=== PATIENT | male | born 1960 | race Caucasian/White ===

== ENCOUNTER 2018-02-15 07:51 | Emergency (ER) | payer OTHER ==
[~2018-02-15] VITALS: Ht 177.8 cm; Wt 90.0 kg
[2018-02-15] MEDS ORDERED: LEVOTHYROXIN125 MCG PO (08:17)
[2018-02-15] MEDS ORDERED: LEVOTHYROXIN100 MCG PO (08:18)
[2018-02-15] MEDS ORDERED: OMEGA-3 FISH1000 MG PO (08:19)
[2018-02-15] MEDS ORDERED: RANITIDINE150 MG PO (08:19)
[2018-02-15] MEDS ORDERED: SIMVASTATIN40 MG PO (08:20)
[2018-02-15] MEDS ORDERED: BENZTROPINE0.5 MG PO ×2 (08:31→08:32)
[2018-02-15] MEDS ORDERED: LAMICTAL150 MG PO (08:33)
[2018-02-15] MEDS ORDERED: TAMSULOSIN HCL0.4 MG PO (08:35)
[2018-02-15] MEDS ORDERED: PROLIXIN 5 MG TA5 MG PO (08:36)
[2018-02-15] MEDS ORDERED: GABAPENTIN PO (08:38)
[2018-02-15] MEDS ORDERED: CEPHALEXIN500 M1 PO (10:10)
[2018-02-15 10:19] VITALS: BP 120/68
== END 2018-02-15 10:23 | disposition designated cancer center or children's hospital (05) | DRG 605 ==
LOC: ED 07:51
PROC: 0HQ0XZZ Repair Scalp Skin, External Approach (ICD-10-PCS; principal; 2018-02-15)
DX: S01.01XA Laceration without foreign body of scalp, initial encounter (principal); W19.XXXA Unspecified fall, initial encounter; Y92.149 Unspecified place in prison as the place of occurrence of the external cause

== ENCOUNTER → 2018-04-14 | Outpatient (REF) | payer OTHER ==
[~2018-04-14] MED LIST: BENZTROPINE0.5 MG PO; CEPHALEXIN500 M1 PO; GABAPENTIN PO; LAMICTAL150 MG PO; LEVOTHYROXIN100 MCG PO; LEVOTHYROXIN125 MCG PO; OMEGA-3 FISH1000 MG PO; PROLIXIN 5 MG TA5 MG PO; RANITIDINE150 MG PO; SIMVASTATIN40 MG PO; TAMSULOSIN HCL0.4 MG PO
== END | disposition home or self-care (01) | DRG 552 ==
LOC: MRI 04-04 07:30
PROVIDERS: ATTEND Internal Medicine
DX: M51.35 Other intervertebral disc degeneration, thoracolumbar region (principal); M51.36 Other intervertebral disc degeneration, lumbar region; M51.37 Other intervertebral disc degeneration, lumbosacral region; M48.061 Spinal stenosis, lumbar region without neurogenic claudication

== ENCOUNTER 2023-02-22 18:18 | Emergency (ER) | payer OTHER ==
[~2023-02-22] VITALS: Ht 177.8 cm; Wt 96.0 kg
[2023-02-22] MEDS ORDERED: LISINOPRIL40 MG PO (19:11)
[2023-02-22] MEDS ORDERED: LASIX 40 MG TAB40 MG PO (19:11)
[2023-02-22] MEDS ORDERED: MAXZIDE-25MG1 COMBO PO (19:13)
[2023-02-22] MEDS ORDERED: CLONIDINE0.2 MG PO (19:14)
[2023-02-22] MEDS ORDERED: ATORVASTATIN CA40 MG PO (19:14)
[2023-02-22 19:17] LABS: ALBUMIN 4.3 g/dL (3.2-5.0); ALKALINE PHOSPHATASE 76 u/l (38-126); ANION GAP 14 (6-22 (CALC)); BILIRUBIN, TOTAL 0.3 mg/dL (0.2-1.3); BUN 11 mg/dL (8-23); BUN/CREATININE RATIO 11 (12-20 (CALC)); CARBON DIOXIDE 28 mmol/l (22-30); CHLORIDE 104 mmol/l (95-108); GFR FOR AFR.AMER. > 60 ML/MIN (>=60 (CALC)); GFR OTHER RACES > 60 ML/MIN (>=60 (CALC)); POTASSIUM 4.1 mmol/l (3.5-5.1); SGOT/AST 35 u/l (19-48); SODIUM 142 mmol/l (137-146); TOTAL PROTEIN 7.5 g/dL (6.3-8.2)
[2023-02-22] MEDS ORDERED: ABILIFY5 MG PO (19:18)
[2023-02-22 19:19] LABS: BASO% 0.4 % (0-3); EOS% 8.7 % (0-8); HEMATOCRIT 38.4 % (39.0-50.0); HEMOGLOBIN 12.3 g/dl (14.0-18.0); IMMATURE GRANULOCYTES 0.1 % (0.0-5.0); LYMPH% 24.6 % (15-41); MEAN CELL VOLUME 90.8 fL CALC (80.0-100.0); MEAN CORPUSCULAR HGB 29.1 pG CALC (26.0-32.0); MONO% 10.3 % (2-13); NEUT% 55.9 % (42-76); RED BLOOD COUNT 4.23 mill/uL (4.70-6.10); RED CELL DISTRI WIDTH 14.7 % (11.5-15.5)
[2023-02-22] MEDS ORDERED: BUPROPION HCL150 MG PO (19:19)
[2023-02-22 19:29] LABS: PROTHROMBIN TIME 10.3 SECONDS (9.0-12.5)
[2023-02-22 19:30] LABS: D-DIMER 2.08 mg/L (0.19-0.60)
[2023-02-22 20:19] VITALS: BP 136/88
[2023-02-22 20:30] VITALS: BP 165/90
[2023-02-22 20:45] VITALS: BP 164/95
[2023-02-22 21:00] VITALS: BP 172/92
[2023-02-22 21:15] VITALS: BP 166/83
[2023-02-22] MEDS ORDERED: KEFLEX500 MG PO (22:42)
[2023-02-22 22:57] VITALS: BP 166/83
== END 2023-02-22 22:51 | disposition designated cancer center or children's hospital (05) | DRG 603 ==
LOC: ED 18:18
PROVIDERS: Nurse Practitioner
DX: L03.115 Cellulitis of right lower limb (principal); S81.811A Laceration without foreign body, right lower leg, initial encounter; I10 Essential (primary) hypertension; I25.10 Atherosclerotic heart disease of native coronary artery without angina pectoris; W19.XXXA Unspecified fall, initial encounter; Y92.149 Unspecified place in prison as the place of occurrence of the external cause